=== PATIENT | female | born 1950 | race African-American/Black ===

== ENCOUNTER 2022-06-06 00:49 | Emergency (ER) | payer OTHER ==
[~2022-06-06] VITALS: Ht 152.4 cm; Wt 79.0 kg
[2022-06-06 01:28] VITALS: BP 152/74
[2022-06-06] MEDS ORDERED: INDO50CA82 PO (03:38)
[2022-06-06] MEDS ORDERED: KETOROLAC TROMETH 60MG/2ML VIAL IM ONE (03:45)
== END 2022-06-06 04:27 | disposition home or self-care (01) ==
LOC: ER 00:49
DX: M10.9 Gout, unspecified (principal); Z88.8 Allergy status to other drugs, medicaments and biological substances
CPT/HCPCS: 96372; 99283; J1885